=== PATIENT | male | born 1990 | race Two or more races ===

== ENCOUNTER 2024-05-22 10:59 | Emergency (ER) | payer OTHER | END 2024-05-22 11:04 | disposition left against medical advice (07) | LOC: ER 10:59 | DX: R06.02 Shortness of breath (principal); Z53.21 Procedure and treatment not carried out due to patient leaving prior to being seen by health care provider ==

== ENCOUNTER 2024-12-17 07:57 | Emergency (ER) | payer MEDICAID ==
[~2024-12-17] VITALS: Ht 188 cm; Wt 150.0 kg
[2024-12-17 07:58] VITALS: TEMP 98.7
[2024-12-17 08:31] VITALS: BP 130/72; PULSE 77; RESP 18; O2SAT 97
[2024-12-17] MEDS: KETOROLAC TROMETH 60MG/2ML VIAL IM ONE (08:39)
--- NOTE | 2024-12-17 08:47 | ED.PDOC ---
Musculoskeletal HPI Comments 34 year old male presents to the ED with a chief complaint of LT knee pain s/p fall onset 1 day. Patient states he was hiking yesterday, fell and landed on LT knee. Since then, patient has been experiencing LT knee pain, swelling with few abrasions, pain worsens with flexion of knee. Last tetanus shot was 2 years ago. Denies any PMHx as well as head injury, neck injury, back injury, LOC, nausea, vomiting, diarrhea, fever, chills, abdominal pain, chest pain, numbness/tingling. No other symptoms or modifying factors present at this time. Chief Complaint: Lower Extremity Time Seen by MD: 08:45 Reviewed Notes: Medications, Allergies Allergies: Coded Allergies: NO KNOWN ALLERGIES (Unverified , 12/17/24) Information Source: Patient Mode of Arrival: Ambulatory Location: Left Extremity Location: Knee Timing: Days Prehospital treatment: None Severity: Moderate Able to Move Extremity: Yes Bear Weight: Limited Pain: Moderate Mechanism: Spontaneous Circumstances: Fall Onset of Symptoms: After Trauma Symptoms: Swelling, Pain DVT Risk Factors: NONE Last Tetanus: UTD Associated signs and symptoms: Knee pain Past Medical History PAST MEDICAL HISTORY: Denies Surgical History: Denies all surgeries Family History Family History: Reviewed,noncontributory to illness, No family hx of Cancer, No family hx of DM, No family hx of Heart jenelle, No family hx of HTN, No family hx ofKidney jenelle, No family hx of Liver jenelle, No family hx of Lung jenelle, No family hx of Stroke Social History Smoker: Non-Smoker Alcohol: Denies ETOH Use Drugs: Marijuana Lives In: Home Constitutional: denies: chills, diaphoresis, fatigue, fever, malaise, sweats, weakness, others EENTM: denies: blurred vision, double vision, ear bleeding, ear discharge, ear drainage, ear pain, ear ringing, eye pain, eye redness, hearing loss, mouth pain, mouth swelling, nasal discharge, nose bleeding, nose congestion, nose pain, photophobia, tearing, throat pain, throat swelling, voice changes, others Respiratory: denies: cough, hemoptysis, orthopnea, SOB at rest, shortness of breath, SOB with excertion, stridor, wheezing, others Cardiovascular: denies: chest pain, dizzy spells, diaphoresis, Dyspnea on exertion, edema, irregular heart beat, left arm pain, lightheadedness, palpitations, PND, syncope, others Gastrointestinal: denies: abdomen distended, abdominal pain, blood streaked bowels, constipated, diarrhea, dysphagia, difficulty swallowing, hematemesis, melena, nausea, poor appetite, poor fluid intake, rectal bleeding, rectal pain, vomiting, others Genitourinary: denies: burning, dysuria, flank pain, frequency, hematuria, incontinence, penile discharge, penile sore, pain, testicle pain, testicle swelling, urgency, others Neurological: denies: dizziness, fainting, headache, left sided numbness, left sided weakness, numbness, paresthesia, pre-existing deficit, right sided numbnes s, right sided weakness, seizure, speech problems, tingling, tremors, weakness, others Musculoskeletal: reports: others (LT knee pain, swelling); denies: back pain, gout, joint pain, joint swelling, muscle pain, muscle stiffness, neck pain Integumetry: denies: bruises, change in color, change in hair/nails, dryness, l aceration, lesions, lumps, rash, wounds, others Allergic/Immunocompromised: denies: Difficulty Healing, Frequent Infections, Hives, Itching, others Hematologic/Lymphatic: denies: anemia, blood clots, easy bleeding, easy bruising, swollen glands, others Endocrine: denies: excessive hunger, excessive sweating, excessive thirst, excessive urination, flushing, intolerance to cold, intolerance to heat, unexplained weight gain, unexplained weight loss, others Psychiatric: denies: anxiety, bipolar disorder, depression, hopeless, panic disorder, schizophrenia, sleepless, suicidal, others All Other Systems: Reviewed and Negative Physical Exam General Appearance: Moderate Distress, Normal, Obese HEENT: Normal ENT Inspection, PERRL/EOMI, Pharynx Normal, TMs Normal Neck: Full Range of Motion, Non-Tender, Normal, Normal Inspection Respiratory: Chest Non-Tender, Lungs Clear, No Accessory Muscle Use, No Respiratory Distress, Normal Breath Sounds Cardiovascular: No Edema, No JVD, No Murmur, No Gallop, Normal Peripheral Pulses, Regular Rate/Rhythm Breast Exam: Deferred Gastrointestinal: No Organomegaly, Non Tender, No Pulsatile Mass, Normal Bowel Sounds, Soft Genitalia: Deferred Pelvic: Deferred Rectal: Deferred Extremities: Decreased range of motion, Inflammation, No calf tenderness, Normal capillary refill, Normal range of motion, No pedal edema, Swelling, Tender, Other (Patient fell on left knee which is swollen tender limited flexion-extension and multiple abrasions) Musculoskeletal : Apperance: Normal Neurologic: Alert, 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 Was a procedure done?: No Differential Diagnosis EXT Differential Diagnosis: Fracture, Sprain, DJD, Contusion X-Ray, Labs, Meds, VS Vital Signs Date Time Temp Pulse Resp B/P (MAP) Pulse Ox O2 Delivery O2 Flow Rate FiO2 12/17/24 08:31 77 18 97 Room Air 12/17/24 08:31 77 18 130/72 (91) 97 12/17/24 07:58 98.7 84 20 132/85 96 98.7 Current Medications Medications (Trade) Dose Ordered Sig/Brian Route Start Time Stop Time Status Last Admin Ketorolac Tromethamine (Toradol Injection) 60 mg ONCE ONCE IM 12/17/24 08:15 12/17/24 08:16 DC 12/17/24 08:39 X-Ray, Labs, Meds, VS Comment The patient came to the [facility] after a fall and injury to the left knee he also deep road abrasions after the fall The x-ray of the knee shows DJD effusions but no fractures The patient will be treated with Norm wrap to the knee and also cleaning the knee and apply dressing and Norm wrap Patient will be discharged to follow up with his PCP Time of 1ST Reevaluation: 09:15 Reevaluation 1ST: Unchanged Reevaluation 2ND: Improved Consultation: PCP Patient Education/Counseling: Diagnosis, Treatment, Prognosis, Need For Follow Up Family Education/Counseling: Diagnosis, Treatment, Prognosis, Need For Follow Up, No Family Present Departure 1 Departure Time of Disposition: 09:48 Impression: Primary Impression: Abrasion, left knee, initial encounter Additional Impressions: Traumatic effusion of knee joint Degenerative joint disease of left knee Disposition: 01 HOME / SELF CARE / HOMELESS Condition: Fair Additional Instructions: Reason clean and dry keep the Norm wrap until you feel better and follow up with your PCP e-Prescriptions Diclofenac Potassium (Diclofenac Potassium) 50 Mg Tab 1 TAB PO TIDP for 10 Days, #30 TAB Prov: MARYELLEN PATEL MD 12/17/24 Discharged With: Self Critical Care Note Critical Care Time?: No Stability Stability form required: No Heart Score Heart Score: Heart Score Response (Comments) Value History N/A 0 EKG N/A 0 Age <45 0 Risk Factors No known risk factors 0 Troponin N/A 0 Total 0 I personally scribed for MARYELLEN PATEL MD ([email or web address]) on 12/17/24 at 08:46. Electronically submitted by Anali Knapp ([email or web address]). MARYELLEN PATEL MD Dec 17, 2024 08:46
--- NOTE | 2024-12-17 09:28 | DVH ---
Indication: Fell on his knee Technique: XY L KNEE 4V XRAYXY Comparison: None FINDINGS/IMPRESSION: No radiographic evidence for acute fracture or dislocation. Moderate suprapatellar effusion. M mild rate tricompartmental degenerative joint disease.
[2024-12-17] MEDS ORDERED: DICL50TA2 PO (09:51)
== END 2024-12-17 10:13 | disposition home or self-care (01) ==
LOC: ER 07:57
DX: S80.212A Abrasion, left knee, initial encounter (principal); M17.12 Unilateral primary osteoarthritis, left knee; M25.461 Effusion, right knee; F12.90 Cannabis use, unspecified, uncomplicated; W19.XXXA Unspecified fall, initial encounter; Y93.01 Activity, walking, marching and hiking; Y92.89 Other specified places as the place of occurrence of the external cause; Y99.8 Other external cause status
CPT/HCPCS: 29505; 73564; 96372; 99283; J1885